=== PATIENT | female | born 1990 | race Caucasian/White ===

== ENCOUNTER 2024-12-27 08:20 | Outpatient (REF) | payer OTHER, SELFPAY ==
--- NOTE | 2024-12-27 08:25 | EMG_ITS ---
Chief complaint: Left arm feels heavy with lifting or overhead activities. There is some numbness in the forearm down to 3rd-5th digits. There is some pain on left neck/axillary area. Reason for referral: Evaluate for thoracic outlet syndrome Referred by: Nate TAYLOR Procedure done: Left upper extremity NCS/EMG Precautions and/or limitations: None The limb temperature was monitored continuously and remained between 32-36 degrees C during the performance of the NCS. Nerve Conduction Studies Anti Sensory Summary Table ?Stim Site NR Onset (ms) Norm Onset (ms) Peak (ms) Norm Peak (ms) O-P Amp (?V) Norm O-P Amp Site1 Site2 Delta-0 (ms) Dist (cm) Malik (m/s) Norm Malik (m/s) Left Lat Ante Brach Cutan Anti Sensory (Lat Forearm) Lat Biceps ? 2.5 2.7 9.4 Lat Biceps Lat Forearm 2.5 0.0 Left Med Ante Brach Cutan Anti Sensory (Med Forearm) Elbow ? 2.1 2.5 15.7 Elbow Med Forearm 2.1 0.0 Left Median Anti Sensory (2nd Digit) Wrist ? 2.3 3.1 <3.6 59.5 >10 Wrist 2nd Digit 2.3 14.0 61 Left Radial Anti Sensory (Thumb) Forearm ? 1.6 2.2 <3.1 36.0 Forearm Thumb 1.6 0.0 Left Ulnar Anti Sensory (5th Digit) Wrist ? 2.2 3.1 <3.7 60.4 >15.0 Wrist 5th Digit 2.2 14.0 64 Motor Summary Table ?Stim Site NR Onset (ms) Norm Onset (ms) O-P Amp (mV) Norm O-P Amp iAmp (mV) Amp (1st) (%) Site1 Site2 Delta-0 (ms) Dist (cm) Malik (m/s) Norm Malik (m/s) Left Median Motor (Abd Poll Brev) Wrist ? 2.7 <3.9 6.9 >4.5 7.9 100.0 Elbow Wrist 3.6 21.0 58 >45 Elbow ? 6.3 6.6 7.9 95.7 Left Ulnar Motor (Abd Dig Minimi) Wrist ? 2.6 <3.0 9.0 >5 10.5 100.0 B Elbow Wrist 2.8 17.5 62 >45 B Elbow ? 5.4 8.3 10.3 92.2 A Elbow B Elbow 1.6 10.0 63 >45 A Elbow ? 7.0 8.3 10.3 92.2 EMG ?Side Muscle Nerve Root Ins Act Fibs Psw Amp Dur Poly Recrt Int Pat Comment Left 1stDorInt Ulnar C8-T1 Nml Nml Nml Nml Nml 0 Nml Complete Left FlexCarRad Median C6-7 Nml Nml Nml Nml Nml 0 Nml Complete Left FlexCarpiUln Ulnar C8,T1 Nml Nml Nml Nml Nml 0 Nml Complete Left Biceps Musculocut C5-6 Nml Nml Nml Nml Nml 0 Nml Complete Left Triceps Radial C6-7-8 Nml Nml Nml Nml Nml 0 Nml Complete Left Deltoid Axillary C5-6 Nml Nml Nml Nml Nml 0 Nml Complete FINDINGS: All motor and sensory nerves tested showed normal latencies, amplitudes and conduction velocities. Concentric needle EMG was performed in selected muscles of the left upper extremity and cervical paraspinals. Study did not reveal signs of electric abnormalities as shown in the table above. IMPRESSION: 1. This is a normal study. 2. There is no electrodiagnostic evidence for median neuropathy, ulnar neuropathy, brachial plexopathy/thoracic outlet, or cervical radiculopathy. Thank you for your kind referral. Patricia Hathaway MD, TACOS Board Certified, [place] Board [employer] Physical Medicine and Rehabilitation (ABPMR) Board Certified, [place] Board of Electrodiagnostic Medicine (ABEM) CODIN [id number] MTDD
--- OUTSIDE RECORDS SUMMARY | 2024-12-27 08:26 | XMS_ITS ---
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 She was seen onMarch 16, 2023, at which time The following treatment regimen was given: Continue the following treatment(s): :Tretinoin 0.025% PM (refilled today). Discontinue the following treatment(s): :S/p Spir onolactone 50mg daily. Recommend the following Bjad-Yrj-Lameblk treatment(s): :CeraVe hydrating cleanserCeraVe facial moisturizer. Plan: :Controlled and improved. Since then, the patient states the acne vulgaris is stable.The patient presents for further evaluation and management.The patient followed the treatment plan as directed.Interval History: Patient reports flares during her cycle but thatacne is stable overall. Is currently using a molecular hydrogen machine (uses daily if possible) inaddition to tretinoin daily (requires a refill). Medications Medication Generic Name RxNorm Strength Strength Unit Route Dose Dose Form Frequency Date Started Date Ended Status Indication Sig Benzaclin Pump clindamy lilian-stephanie oyl peroxide 013867 1-5 % Topica l gel with pump 07/17/19 21 suspend ed Appl y once jovanna y in the morn ing to enti re face . ciclopirox ciclopir ox 281923 0.77 % Topica l cream 10/02/19 20 suspend ed Appl y am and pm on and unde r toen ails and on feet ciclopirox ciclopir ox 225247 0.77 % Topica l suspe nsion 07/17/19 21 suspend ed Appl y toe toen ails and nail fold jovanna y for 6 days , on 7th day kai ve with nail jaret sh kai zoila and star t over for tota l of 9 -12 oskar hs. ciclopirox ciclopir ox 222941 8 % Topica l solut ion 11/20/19 21 suspend ed Appl y on and arou nd nail s jovanna y, on 7th day kai ve with nail jaret sh kai zoila and re star t. Do this for 9-12 oskar hs. mupirocin mupiroci n 837738 2 % Topica l ointm ent suspend ed tretinoin tretinoi n 741726 0.025 % Topica l cream QHS 07/17/19 21 suspend ed Appl y a pea size d amou nt at bedt leslie. Ever y othe r nigh t to ever y thir d nigh t if irri keegan ng. tretinoin tretinoi n 882143 0.025 % Topica l small amoun t cream QHS 03/16/20 23 active Appl y a pea size d amou nt at bedt leslie. Ever y othe r nigh t to ever y thir d nigh t if irri keegan ng. tretinoin tretinoi n 236925 0.05 % Topica l cream 12/26/19 25 active Appl y pea- size d amou nt over the face in PM. September alte rnat e it with 0.02 5 for 2-3 week s as tole rate d. Then star t appl santino it jovanna y. minocycline minocycl ine 19781218 100 mg Oral capsu le suspend ed spironolact one spironol actone 19810619 50 mg Oral table t 09/18/19 21 suspend ed Take 1 pill by mout h once jovanna y for 1 week , if tole rate d incr ease to 2 pill s (100 mg) once jovanna y. terbinafine HCl terbinaf ine HCl 035518 250 mg Oral table t 02/27/20 20 suspend ed 1 tab po jovanna y avoi d alco hol d/c dark urin e ligh t shannon l move ment s AMOXICILLIN RODRIGUEZ 250/5ML NULL 04/18 10 active Atovaquone- Proguanil HCl NULL 08/21/19 18 active Azithromyci n NULL 08/21/19 18 active Ciprofloxac in HCl NULL 08/21/19 18 active Clindamycin Phosphate NULL 18 suspend ed Ertaczo NULL 07/25/19 11 active FLUCONAZOLE TAB 150MG NULL 10 active Gianvi NULL 08/21/19 18 active Jublia NULL 07/18/19 16 active Loryna NULL 08/21/19 18 active MICROGESTIN TAB FE1.5 NULL 0 10 active Omeprazole NULL 09/13/19 16 active OMEPRAZOLE 20 MG CPDR NULL 07/17 16 active OMEPRAZOLE 20 MG CPDR NULL 07/17 16 active Ondansetron NULL 08/21/19 18 active Ondansetron HCl NULL 08/21/19 18 active OXYCODONE TAB 5MG NULL 05/15/20 10 active PENICILLN VK TAB 500MG NULL 05/15/20 10 active Protonix NULL 10/28/19 19 suspend ed SERTRALINE TAB 50MG NULL 0 10 active Sertraline HCl NULL 09/13/19 16 active SERTRALINE HCL 50 MG TABS NULL 07/18/19 16 active SERTRALINE HCL 50 MG TABS NULL 07/18/19 16 active Simvastatin NULL 09/13/19 16 active SIMVASTATIN 10 MG TABS NULL 07/17 16 active SIMVASTATIN 10 MG TABS NULL 07/17 16 active Sprintec 28 NULL 09/13/19 16 active SPRINTEC 28 .25-35 MG-MCG TABS NULL 08/03 16 active Tretinoin NULL 08/21/19 18 active Urea NULL 02/14/20 10 active ALEE NULL 10/28/19 19 suspend ed Problems Problem Code Type Status Date of Diagnosis Da te of Resolution Acne vulgaris (disorder) 05923094(SNO MED) Diagnosis active 12/25/2024 Acne vulgaris (disorder) 00027616(SNO MED) Diagnosis active 03/16/2023 Melanocytic nevus (disorder) 900847104(SN OMED) Diagnosis active 03/16/2023 Seborrheic keratosis (disorder) 308854254(SN OMED) Diagnosis active 03/16/2023 Disorder of pigmentation (disorder) 303155372(SN OMED) Diagnosis active 03/16/2023 Hemangioma of skin and subcutaneous tissue (disorder) 354169257(SN OMED) Diagnosis active 03/16/2023 History of skin and/or subcutaneous tissue disease (situation) 254197772175 105(SNOMED) Diagnosis active 03/16/2023 Acne (disorder) 16082315(SNO MED) Diagnosis active 06/26/2021 Melanocytic nevus of lower limb (disorder) 191009361(SN OMED) Diagnosis active 06/26/2021 Seborrheic keratosis (disorder) 955326853(SN OMED) Diagnosis active 06/26/2021 Disorder of pigmentation (disorder) 797859678(SN OMED) Diagnosis active 06/26/2021 Hemangioma of skin and subcutaneous tissue (disorder) 072765119(SN OMED) Diagnosis active 06/26/2021 History of skin and/or subcutaneous tissue disease (situation) 019785598734 105(SNOMED) Diagnosis active 06/26/2021 Acne (disorder) 91445548(SNO MED) Diagnosis active 11/19/2020 Disorder of pigmentation (disorder) 130482608(SN OMED) Diagnosis active 11/19/2020 Onychomycosis caused by dermatophyte (disorder) 680659473(SN OMED) Diagnosis active 11/19/2020 Acne (disorder) 06664677(SNO MED) Diagnosis active 09/17/2020 Recurrent aphthous stomatitis (disorder) 142491579(SN OMED) Diagnosis active 09/17/2020 Tinea unguium B35.1(ICD-10 ) Diagnosis active 07/16/2020 Acne vulgaris L70.0(ICD-10 ) Diagnosis active 07/16/2020 Tinea unguium B35.1(ICD-10 ) Diagnosis active 02/13/2020 Tinea unguium B35.1(ICD-10 ) Diagnosis active 10/02/2019 Benign neoplasm of skin of trunk (disorder) 85847433(SNO MED) Diagnosis active 07/18/2015 Acne (disorder) 17832109(SNO MED) Problem active Dysplastic nevus of skin (disorder) 003982953(SN OMED) Problem active History of skin disorder (situation) 878275686(SN OMED) Problem active Results No data Encounters Service provided at [address], [facility] [address], [place], [place] [id number]. Office phonenumber is [phone]. Office fax number is [phone]. Encounter Diagnosis Location Date / Time Type Acne Vulgaris (L70.0) [facility] 12/25/2024 11:30:00 [facility] [id number] Reason For Referral I saw Jeanna Lemons in the office on December 25, 2024.Below is a summary of our visit:Acne Vulgaris:inflammatory papules and cystic papules of the lateral cheeks as well as few comedonal papules of the forehead and chin.Plan: Treatment Regimen and Prescription.My impression and plan was the followin.Acne Vulgaris, Status: Inadequately ControlledTreatment Regimen: OTC Regimen - :CeraVe hydrating cleanserCeraVe facial moisturizer; Plan - :Acne with exacerbation; will increase tretinoin today for better control. Patient not interested in systemic treatments. Pt will call the clinic for any refills if needed. FU in 1 year to recheck.; Continue Regimen - :Tretinoin 0.025% PM (Refilled today);Discontinue Regimen - :S/p Spironolactone 50mg daily; Initiate Treatment - :Tretinoin 0.05 % topical cream- Apply pea-sized amount over the face in PM. May alternate with 0.025 for 2-3 weeks until tolerated daily.;.Prescription: tretinoin 0.025 % topical cream TP Frequency: QHS; tretinoin 0.05 % topical cream TP Procedures Procedure Date Documentation of past medical history (p rocedure) Documentation of past medical history (p rocedure) Documentation of past medical history (p rocedure) Documentation of past medical history (p rocedure) Documentation of past medical history (p rocedure) Documentation of past medical history (p rocedure) Documentation of past medical history (p rocedure) Tonsillectomy (procedure) Tonsillectomy (procedure) Review Of Systems Provider reviewed on Dec 25, 2024.A focused review of systems was performed including Integumentary.No Problems With Healing And No Problems With Scarring (hypertrophic Or Keloid). Assessment 1.Acne Vulgaris, Status: Inadequately ControlledTreatment Regimen: OTC Regimen - :CeraVe hydrating cleanserCeraVe facial moisturizer; Plan - :Acne with exacerbation; will increase tretinoin today forbetter control. Patient not interested in systemic treatments. Pt will call the clinic for any refills if needed. FU in 1 year to recheck.; Continue Regimen - :Tretinoin 0.025% PM (Refilled today); Discontinue Regimen - :S/p Spironolactone 50mg daily; Initiate Treatment - :Tretinoin 0.05 % topical cream- Apply pea-sized amount over the face in PM. May alternate with 0.025 for 2-3 weeks until tolerated daily.;.Prescription: tretinoin 0.025 % topical cream TP Frequency: QHS; tretinoin 0.05 % topical cream TP Plan of Care Future visit for 12/25/2024 - Follow up for: Skin Check - 15 minutes (as previously scheduled). Other Instructions: February 2026. Other Instructions: February 2026. Code Detail Instructions 508057 tretinoin 0.025 % topical cream Apply a thin layer of cream to acne on face at PM. 240800 tretinoin 0.05 % topical cream A pply pea-sized amount over the face in PM. May alternate it with 0.025 for 2-3 weeks as tolerated. Then start applying it daily. 828577 tretinoin 0.025 % topical cream Apply a pea sized amount at bedtime. Every other night to every third night if irritating. 589534 tretinoin 0.025 % topical cream Apply a pea sized amount at bedtime. Every other night to every third night if irritating. 681626 tretinoin 0.025 % topical cream Apply a pea sized amount at bedtime. Every other night to every third night if irritating. 200565 tretinoin 0.025 % topical cream Apply a pea sized amount at bedtime. Every other night to every third night if irritating. 317963 tretinoin 0.025 % topical cream Apply a pea sized amount at bedtime. Every other night to every third night if irritating. 782682 Benzaclin Pump 1 %-5 % topical g el Apply once daily in the morning to entire face. 664775 ciclopirox 8 % topical solution Apply on and around nails daily, on 7th day remove with nail yi remover and re start. Do this for 9-12 months. 751499 spironolactone 50 mg tablet Take 1 pill by mouth once daily for 1 week, if tolerated increase to 2 pills (100 mg) once daily. 512887 tretinoin 0.025 % topical cream Apply a pea sized amount at bedtime. Every other night to every third night if irritating. 970910 Benzaclin Pump 1 %-5 % topical g el Apply once daily in the morning to entire face. 504079 ciclopirox 0.77 % topical suspen georgie Apply toe toenails and nail fold daily for 6 days, on 7th day remove with nail yi remover and start over for total of 9 -12 months. 045239 terbinafine HCl 250 mg tablet Ta ke one pill daily 736475 terbinafine HCl 250 mg tablet 1 tab po daily avoid alcohol d/c dark urine light bowel movements 657695 terbinafine HCl 250 mg tablet 1 tab po daily avoid alcohol d/c dark urine light bowel movements 031097 ciclopirox 0.77 % topical cream Apply am and pm on and under toenails and on feet 053908 ciclopirox 0.77 % topical cream Apply am and pm on and under toenails and on feet Instructions * Begin the following treatment(s): :Tretinoin 0.05 % topical cream- Apply pea- sized amount over the face in PM. May alternate with 0.025 for 2-3 weeks until tolerated daily.Continue the following treatment(s): :Tretinoin 0.025% PM (Refilled today). Discontinue the following treatment(s): :S/p Spironolactone 50mg daily. Recommend the following Uotg-Edt-Mszzifp treatment(s): :CeraVe hydrating cleanserCeraVe facial moisturizer. Plan: :Acne with exacerbation; will increase tretinoin today for bettercontrol. Patient not interested in systemic treatments. Pt will call the clinic for any refills if needed. FU in 1 year to recheck. Social History Code Activity Start Date End Date [id number] (SNOMED) Never smoker Sex female Sexual orientation Unspecified Gender identity Unspecified Vital Signs No data
--- OUTSIDE RECORDS SUMMARY | 2024-12-27 08:27 | XMS_ITS | Clinical Summary ---
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 Name Role Phone Unavailable Primary Care Provider Unavailabl e Social History Tobacco Use Types Packs/Day Years Used Date Smoking Tobacco: Never Assessed Comments Unknown Sex and Gender Information Value Date Recorded Sex Assigned at Not on file Legal Sex Female 6:26 PM EDT Gender Identity Not on file Sexual Orientation Not on file Plan of Treatment Health Maintenance Due Date Last Done Comments MMR Vaccines (1 of 1 - Stand amandeep series) 1989 Varicella Vaccines (1 of 2 - 13+ 2-dose series) 2001 DTaP,Tdap,and Td Vaccines (1 - Tdap) 2006 Hepatitis B Vaccines (1 of 3 - 19+ 3-dose series) 07/24/2007 HPV Vaccines (1 - 3-dose SCD M series) 07/24/2015 COVID-19 Vaccine ( - 2023-2 5 season) 2024 Influenza Vaccines (#1) 2024 HIB Vaccines Aged Out No longer eligi ble based on patient's age to complete this topic Hepatitis A Vaccines Aged Out No long er eligible based on patient's age to complete this topic IPV Vaccines Aged Out No longer eligi ble based on patient's age to complete this topic Men B Vaccine Aged Out No longer elig ible based on patient's age to complete this topic Meningococcal Vaccine Aged Out No evans ronnie eligible based on patient's age to complete this topic Pneumococcal Vaccine Aged Out No long er eligible based on patient's age to complete this topic
--- OUTSIDE RECORDS SUMMARY | 2024-12-27 08:27 | XMS_ITS ---
Author Name [facility] Organization Unknown Care Team Organization Name Specialty Phone Email Start Date End Da te [facility] NULL Primary Care 09/21/2022 01/03/2024 [facility] NULL Primary Care 07/22/2022 01/03/2024 [facility] NULL Primary Care 03/24/2022 01/03/2024
--- OUTSIDE RECORDS SUMMARY | 2024-12-27 08:27 | XMS_ITS | Clinical Summary ---
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 acidophilus/Bifi d. animalis (DAILY PROBIOTIC ORAL) Take by mouth. Active DAILY MULTI-VITAMIN ORAL Take by mouth. Active Active Problems Problem Noted Date Diagnosed Date Neck pain, chronic 09/01/2024 Assessment & Plan (09/01/2024 1:06 PM EDT): Ms. Lemons describes neck pain with associated headaches, left pectoralis pain skipping the upper arm but involving the ulnar aspect of the forearm into the fourth and fifth digits of the left hand. I am going to order xrays of the cervical spine. I gave her a script for physical therapy including cervical traction. She takes ibuprofen for the pain. She is welcome to follow up if things do not improve. Liver cyst 08/12/2018 Overview (06/14/2024): 08/02- seen on CT abdomen, sono pending Microscopic hematuria 08/05/2018 Overview (06/14/2024): 08/02- RBC 5, CT abd/pelvis pending Cerebral aneurysm 10/06/2017 Overview (06/14/2024): 08/01. Neurology (Dr. Alberto). 10/01. CTA one year. Assessment & Plan (09/01/2024 1:03 PM EDT): Ms. Lemons has had exertional headaches. She has a history of an intracranial aneurysm but no risk factors for growth or rupture. She is neurologically intact. Her MRA of the brain from 08/11/24 was compared to a prior from 2017. There was no change in a stable 1 mm focal outpouching extending cranially from the left P1 segment. 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 I reviewed the films with Dr. Ash. We will get a repeat MRA in 3 years. Exertional headache 2017 Overview (06/14/2024): 08/01- MRA, ? Varian anomoly, referred to neurology,? Need for 6 month follow-up pending neuro input Esophageal erosions 01/01/2015 IBS (irritable bowel syndrome) 12/31/2014 Overview (06/14/2024): 08/02- refer to GI Vitamin D deficiency 05/26/2011 Hypercholesterolemia with hypertriglyceridemia 1 Overview (06/14/2024): 02/19/11. Lifestyle and diet modifications and recheck in 3 mo. Depression 05/29/2009 GERD (gastroesophageal reflux disease) 8 Overview (06/14/2024): Intoguadalupe ryansebennett Resolved Problems Problem Noted Date Diagnosed Date Resolved Date Abnormal EKG 03/04/2017 08/02/2024 Overview (06/14/2024): 01/31 Holter completed- NSR, occ sinus tach with exercise. Rare PACs, one atrial pair, and one 4 beat atrial run with occasional PVCs, asymptomatic, episodes of lightheadedness and palpitations showed NSR. 08/01- echo with low-normal EF 50-55%, trace mitral regurge with mild leaflet thickening, 11/01- f/u Dr. Tran- f/u echo in 1 year Condition not found 07/18/2013 08/03/19 Overview (06/14/2024): Abnormal Pap smear Abdominal pain 01/25/2008 08/02/2024 Overview (06/14/2024): 2006 Ped GI [facility]--Colonoscopy neg, EGD esophagitis--?IBS 09/22--GI ([facility]az[facility])--IBS EGE 12/29. Small erosion, GE junction Encounters Date Type Department Care Team Description 12/12/2024 5:30 PM EDT Treatment [address] [phone] Charisse Bourneher, PT Neck pain, chronic (Primary Dx) 11/29/2024 5:30 PM EDT Treatment [address] [phone] Timmyl Mayra, PT Neck pain, chronic (Primary Dx) 11/27/2024 5:30 PM EDT Treatment [address] [phone] Timmyl Mayra, PT Neck pain, chronic (Primary Dx) 11/22/2024 5:30 PM EDT Treatment [address] [phone] Timmyl Mayra, PT Neck pain, chronic (Primary Dx) 11/20/2024 5:30 PM EDT Treatment [address] [phone] Moskal Mayra, PT Neck pain, chronic (Primary Dx) 11/13/2024 6:00 PM EDT Treatment [address] [phone] Timmyl Mayra, PT Neck pain, chronic (Primary Dx) 11/09/2024 8:00 AM EDT Consult Orthopedic Surgery - [place] [address] 175 [facility] [address] [place] [phone] Angelic Penn MD Thoracic outlet syndrome of left thoracic outlet 11/07/2024 5:00 PM EDT Treatment [facility] [address] [phone] Mayra Bourne, PT Neck pain, chronic (Primary Dx) 11/03/2024 8:30 AM EDT Treatment [facility] [address] [phone] 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, 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 Neck pain, chronic (Primary Dx) 10/31/2024 6:00 PM EDT Treatment [facility] [address] [phone] Mayra Bourne, PT Neck pain, chronic (Primary Dx) 10/24/2024 5:30 PM EDT Treatment [facility] [address] [phone] 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, 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 Neck pain, chronic (Primary Dx) 10/17/2024 5:00 PM EDT Treatment [address] [phone] Mayra Bourne, PT Neck pain, chronic (Primary Dx) 10/06/2024 9:00 AM EDT Evaluation [facility] [address] [phone] Evangelina Duffy, PT Neck pain, chronic (Primary Dx) 10/06/2024 8:07 AM EDT - 10/06/2024 11:59 PM EDT Hospital Encounter [facility] Xray [address] [place] [phone] Neck pain, chronic Discharge Disposition: Home or Self Care 10/06/2024 Telephone Neurosurgery [facility] 175 [facility] [address] [place] [phone] Tomas Cortés PA 09/27/2024 9:30 AM EDT Office Visit Adult Medicine [address] [phone] Mustapha Torres MD Arm pain, medial, left (Primary Dx); Internal hemorrhoid from Last 3 Months Immunizations Name Administration Dates Next Due DTP 07/30/1993, 0,01/26/1989,11/25,1988 [id number] (Pentacel) 2mo to less than 5yo 01/24/1990 Hepatitis A Adult (Havrix; V aqta) 19yo and older 10/21/2017 Hepatitis A Pediatric (Havri x; Vaqta) 12mo to less than 19yo 01/06/2017 Hepatitis B Pediatric (Enger ix B; Recombivax HB) to less than 20 yo 12/30/2000,08/26/2000,02/18/2000 Influenza trivalent, with pr eservative (Fluzone; Afluria) 6mo and older 02/23/2012,02/19/2011,06/27/2010 MMR, measles mumps and rubel la Live (Priorix; M-M-R II) 12mo and older 07/30/1993,10/25/1989 Meningococcal MCV4P 08/06/2006 OPV 07/30/1993, 0,1988,09/28 Tdap Tetanus diptheria acell ular pertussis (Boostrix; Adacel) 7yo and older 01/06/2017,08/06/2006 Typhoid VICPS (Typhim Vi) 2y o and older 01/06/2017 Surgical History Surgery Date Site/Laterality Comments TONSILLECTOMY 2009 PROCEDURE: HISTORICAL TONSILLECTOMY; COMMENT: no complications WISDOM TOOTH EXTRACTION 2009 PROCEDURE: HISTORICAL WISDOM TEETH EXTRACTION; COMMENT: no complications ESOPHAGOGASTRODUODENOSCOPY 01/01/15 PROCEDURE: [place] ESOPHAGOGASTRODUODENOSCOPY TRANSORAL DIAGNOSTIC; COMMENT: small erosion at GE junction COLONOSCOPY 06/03/2007 PROCEDURE: HISTORICAL COLONOSCOPY; COMMENT: [facility] - normal ESOPHAGOGASTRODUODENOSCOPY 06/03/2007 PROCEDURE: [place] ESOPHAGOGASTRODUODENOSCOPY TRANSORAL DIAGNOSTIC; COMMENT: [facility] - normal Medical History Medical History Date Comments Hypercholesterolemia with hypertriglyceridemia 02/20/2011 DX:Hypercholesterolemia with hypertriglyceridemia Atypical chest pain DX:Atypical chest pain GERD (gastroesophageal reflu x disease) DX:GERD (gastroesophageal re flux disease) Erosive esophagitis DX:Erosive e sophagitis Atypical chest pain DX:Atypical chest pain Early satiety DX:Early satiety Retained food in stomach DX:Genna ined food in stomach History of esophagitis DX:Histor y of esophagitis Family History Medical History Relation Name Comments Breast cancer Aunt Other: breast cancer Aunt stage 4 at diagnosis; paternal aunt; bilateral at diagnosis Stroke Maternal Grandmother ? 70s- aneurysm Depression Mother and anxiety Thyroid disease Mother hypo Other: lung cancer Other 1 paternal great uncle Other: stomach cancer Other 2 patern al great grandmother- at age 65 Alcohol/Drug Paternal Grandfather ETOH Lung cancer Paternal Grandfather smoker; at age 52 Colon cancer Paternal Grandmother Stroke Paternal Grandmother Other: prostate cancer Uncle pater nal uncle, lymphoma Relation Name Status Comments Aunt Alive Brother 1 Alive Brother 2 Alive Father Alive Maternal Grandfather Maternal Grandmother hemorra gic stroke Mother Alive Other 1 Other 2 Paternal Grandfather lung ca Paternal Grandmother complic ations from ischemic stroke Uncle Alive Social History Tobacco Use Types Packs/Day Years Used Date Smoking Tobacco: Never Passive Smoke Exposure: Never Smokeless Tobacco: Never Tobacco Cessation:Counseling Given: Not Answered Alcohol Use Standard Drinks/Week Comments No 0 (1 standard drink = 0.6 oz pur e alcohol) Housing Instability Answer Date Recorde d Are you worried that in the next 2 months you may not have stable housing? No 07/29/2024 Food Access & Nutrition Answer Date Rec orded Do you have access to a vari ety of food including fruits and vegetables? Yes 07/29/2024 Access to Healthcare Answer Date Record ed Within the last 3 months, ho w many times did you visit the emergency department for your medical care? 0 07/29/2024 Health Literacy Answer Date Recorded How often do you need to hav e someone help you when you read instructions, pamphlets, or other written material from your doctor or pharmacy? Never 07/29/2024 Caregiver: How often do you need to have someone help you when you read instructions, pamphlets, or other written material from your doctor or pharmacy? Not on file 07/29/2024 Financial Risk Answer Date Recorded How hard is it for you to pa y for the very basics like food, housing, medical care, and air conditioning / heating? Not very hard 07/29/2024 Transportation Answer Date Recorded Has the lack of transportati on kept you from meetings, work, or from getting things needed for daily living? No Has the lack of transportati on kept you from medical appointments or from getting medications? No 07/29/2024 Social Isolation Answer Date Recorded How often do you feel lonely or isolated from th ose around you? Never 07/29/2024 Food Risk Answer Date Recorded Within the past 12 months we worried whether our food would run out before we got money to buy more. Never true 07/29/2024 Within the past 12 months th e food we bought just didn't last and we didn't have money to get more. Never true 07/29/2024 Dependent Care Answer Date Recorded Do you need help finding or paying for care for your loved ones. For example, children librarian or elderly care for an older adult? No 07/29/2024 Education Answer Date Recorded Do you think completing more education or training, like finishing a GED, going to college, or learning a trade, would be helpful for you? No 07/29/2024 Employment and Income Answer Date Recor ded During the last four weeks, have you been actively looking for work? No 07/29/2024 Living Situation Answer Date Recorded What is your living situation? 0 07/29/2024 Comments Unknown Sex and Gender Information Value Date Recorded Sex Assigned at Not on file Legal Sex Female 2:10 AM EST Gender Identity Not on file Sexual Orientation Not on file Obstetrics History Last Filed Vital Signs Vital Sign Reading Time Taken Comments Blood Pressure 90/50 09/27/2024 9:29 AM EDT Pulse 62 09/27/2024 9:29 AM EDT Temperature 36.1 C (97 F) 09/27/2024 9:29 AM EDT Respiratory Rate - - Oxygen Saturation - - Inhaled Oxygen Concentration - - Weight 49 kg (108 lb) 11/09/2024 8:10 AM EDT Height 160 cm (5' 2.99 ) 11/09/2024 8:10 AM EDT Body Mass Index 19.14 11/09/2024 8:10 AM EDT Plan of Treatment Upcoming Encounters Date Type Department Care Team (Late st Contact Info) Description 02/15/2025 8:30 AM EDT Office Visit Orthopedic Surgery - [place] [address] [facility] [address] [place] [phone] Angelic Penn MD 175 [facility] [address] [place] [address] Health Maintenance Due Date Last Done Comments Pneumococcal Vaccine: Pediatrics (0 to 5 Years) and At-Risk Patients (6 to 49 Years) (1 of 2 - PCV) 07/24/2007 HIV Screening 05/06/2021 COVID-19 Vaccine ( season) 2024 02/10/2021, 05/27/2020, 05/06/2020 Influenza Vaccine (#1) 2025 2, 02/19/2011, 06/27/2010 Social Influencers of Health Screening 07/29/2025 07/29/2024 DTaP,Tdap,and Td Vaccines (8 - Td or Tdap) 01/06/2027 01/06/2017, 08/06/2006, 07/30/1993, Additional history exists Cervical Cancer Screening: Pap Smear 05/29/2027 05/29/2024, 06/06/2020 Cholesterol Screening (Lipid Panel) 08/02/2029 08/02/2024, 10/21/2017 HIB Vaccines Completed 01/24/1990 IPV Vaccines Completed 07/30/1993, 03/17, 01/24/1990, Additional history exists MMR Vaccines Completed 07/30/1993, 10/25/1989 Hepatitis B Vaccines Completed 12/30/2000, 08/26/2000, 02/18/2000 Meningococcal ACWY Vaccine Completed 08/06/2006 Hepatitis C Screening Completed 08/26/2011 Hepatitis A Vaccines Aged Out 10/21/2017, 01/07/20 17 No longer eligible based on patient's age to complete this topic Depression Screening Completed 07/29/2024 HPV Vaccines Aged Out No longer eligi ble based on patient's age to complete this topic Meningococcal B Vaccine Aged Out No l onger eligible based on patient's age to complete this topic RSV Immunization Patients Under 20 months Aged Out No longer eligible based on patient's age to complete this topic Varicella Vaccines Aged Out No longer eligible based on patient's age to complete this topic Procedures Procedure Name Priority Date/Time Associated Diagnosis Comments XR SHOULDER 2+ VIEWS LEFT Routine 11/09/2024 8:13 AM EDT Arm pain, medial, left XR CERVICAL SPINE 4-5 VIEWS Routine 10/06/2024 8:18 AM EDT Neck pain, chronic LIPID PANEL WITH REFLEX TO DIRECT LDL Routine 08/02/2024 9:53 AM EDT Other chest pain HM PAP SMEAR Routine 06/06/2020 HEPATITIS C SCREENING Routine 08/26/2011 from Last 3 Months or Most Recently Relevant to Health Maintenance Results * XR Shoulder 2+ Views Left (11/09/2024 8:13 AM EDT) Anatomical Region Laterality Modality Upper Extremities, Shoulder Left Comp uted Radiography 11/09/2024 10:2 6 AM EDT Impressions 11/09/2024 10:29 AM EDT No clear source of shoulder pain identified. POS - [id number] -------- FINAL REPORT -------- Dictated By: Cristin Acosta Dictated Date: 11/09/2024 10:26 ET Assigned Physician: Cristin Acosta Reviewed and Electronically Signed By: Cristin Acosta Signed Date: 11/09/2024 10:29 ET Workstation ID: [id number] Transcribed By: Self Edit Transcribed Date: 11/09/2024 10:26 ET Narrative 11/09/2024 10:29 AM EDT EXAM: Left shoulder x-ray HISTORY: Left shoulder pain. COMPARISON: None FINDINGS: 4 views performed. No appreciable degenerative changes at the acromioclavicular and glenohumeral joints. No evidence of an acute fracture or dislocation. No destructive bone lesion. No soft tissue calcifications. Procedure Note Cristin Acosta MD - 11/09/2024 EXAM: Left shoulder x-ray HISTORY: Left shoulder pain. COMPARISON: None FINDINGS: 4 views performed. No appreciable degenerative changes at the acromioclavicular andglenohumeral joints. No evidence of an acute fracture or dislocation. Nodestructive bone lesion. No soft tissue calcifications. IMPRESSION: No clear source of shoulder pain identified. POS - [id number] -------- FINAL REPORT -------- Dictated By: Cristin Acosta Dictated Date: 11/09/2024 10:26 ET Assigned Physician: Cristin Acosta Reviewed and Electronically Signed By: Cristin Acosta Signed Date: 11/09/2024 10:29 ET Workstation ID: [id number] Transcribed By: Self Edit Transcribed Date: 11/09/2024 10:26 ET Angelic Penn MD IMG XR PROCEDURES Final Result * XR Cervical Spine 4-5 Views (10/06/2024 8:18 AM EDT) Anatomical Region Laterality Modality Spine, C-spine Radiographic Felicitas ging 10/06/2024 8:57 AM EDT Impressions 10/06/2024 8:58 AM EDT FINDINGS/IMPRESSION: Normal cervical lordosis. No fracture or prevertebral swelling. Disc space heights and facet joints are preserved. Normal alignment with flexion and extension. Lung apices are clear. -------- FINAL REPORT -------- Dictated By: SETH FAIRCHILD Dictated Date: 10/06/2024 08:57 ET Assigned Physician: SETH FAIRCHILD Reviewed and Electronically Signed By: SETH FAIRCHILD Signed Date: 10/06/2024 08:58 ET Workstation ID: [id number] Transcribed By: Self Edit Transcribed Date: 10/06/2024 08:57 ET Narrative 10/06/2024 8:58 AM EDT XR CERVICAL SPINE 4-5 VIEWS INDICATION: Pain TECHNIQUE: XR CERVICAL SPINE 4-5 VIEWS COMPARISON: No priors available. Procedure Note Seth Fairchild MD - 10/06/2024 XR CERVICAL SPINE 4-5 VIEWS INDICATION: Pain TECHNIQUE: XR CERVICAL SPINE 4-5 VIEWS COMPARISON: No priors available. IMPRESSION: FINDINGS/IMPRESSION: Normal cervical lordosis. No fracture orprevertebral swelling. Disc space heights and facet joints are preserved.Normal alignment with flexion and extension. Lung apices are clear. -------- FINAL REPORT -------- Dictated By: SETH FAIRCHILD Dictated Date: 10/06/2024 08:57 ET Assigned Physician: SETH FAIRCHILD Reviewed and Electronically Signed By: SETH FAIRCHILD Signed Date: 10/06/2024 08:58 ET Workstation ID: [id number] Transcribed By: Self Edit Transcribed Date: 10/06/2024 08:57 ET Tomas TAYLOR IMG XR PROCEDURES Final Resul t * Lipid panel with reflex to direct LDL (08/02/2024 9:53 AM EDT) Cholesterol 161 0 - 200 mg/dL LAB CHE[facility]STR[facility] Triglycerides 93 0 - 150 mg/dL LAB CHEMISTRY METHOD 08/02/2024 12:33 PM [facility] HDL 44 >=40 mg/dL LAB CHEMISTRY METHOD 08/02/2024 12:33 PM [facility] LDL Calculated 98 0 - 100 mg/dL LAB CHEMISTRY METHOD 08/02/2024 12:33 PM [facility] VLDL Cholesterol [place] 18.6 mg/dL LAB CHEMISTRY METHOD 08/02/2024 12:33 PM [facility] Non HDL Chol. (LDL+VLDL) 117 <145 mg/dL LAB CHEMISTRY METHOD 08/02/2024 12:33 PM [facility] Chol/HDL Ratio 3.7 0.0 - 4.4 LAB CHEMISTRY METHOD 08/02/2024 12:33 PM [facility] Blood Venous blood specimen / Unknown Venipuncture / Unknown 08/02/2024 9:53 AM EDT 08/02/2024 9:53 AM EDT Mustapha Torres MD LAB BLOOD ORDERABLES Fin al Result [facility] [address] [place] [address], * Pap Smear (06/06/2020) Pap smear no interpretation , abstracted Historical Provider HEALTH MAINTENANCE Final Result * Hepatitis C Screening (08/26/2011) Hepatitis C Screening abstracted Historical Provider HEALTH MAINTENANCE Final Result from Last 3 Months or Most Recently Relevant to Health Maintenance Insurance [facility] [address] [place] [address] Care Teams Pit Worker Power Shovel Relationship Specialty Start Date End Date Bennett Rodriguez MD [address] [place] [address] PCP - General 01/06/08
== END 2024-12-27 08:21 | disposition home or self-care (01) ==
LOC: HO.NEURO 08:20
PROVIDERS: PCP Pediatrics
DX: R20.0 Anesthesia of skin (principal); R20.2 Paresthesia of skin
CPT/HCPCS: 95886; 95910

== ENCOUNTER → 2024-12-27 08:25 | Outpatient (BNV) | payer OTHER, SELFPAY | PROVIDERS: PCP Pediatrics; Visit Provider Physical Medicine & Rehabilitation | DX: R20.0 Anesthesia of skin (principal); R20.2 Paresthesia of skin | CPT/HCPCS: 95886; 95910 ==

== ENCOUNTER 2025-03-09 14:43 | Outpatient (AMB) | payer OTHER, SELFPAY ==
--- NOTE | 2025-03-09 14:48 | A.OFFVIS_ITS ---
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 Patient describes pain as a heavy sensation making it difficult to do things like driving. Patient states resting her arm against her chest relieves the pain. She also reports occasional numbers and tingling of the left 3rd, 4th, and 5th digits. She denies any recent injuries or surgeries to the left upper extremity. 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 IMPRESSION 12/27/24: 1. This is a normal study. 2. There is no electrodiagnostic evidence for median neuropathy, ulnar neuropathy, brachial plexopathy/thoracic outlet, or cervical radiculopathy. 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 Patient describes pain as a heavy sensation making it difficult to do things like driving. Patient states resting her arm against her chest relieves the pain. She also reports occasional numbers and tingling of the left 3rd, 4th, and 5th digits. She denies any recent injuries or surgeries to the left upper extremity. 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 Patient reports that she does not that the EMG was negative for thoracic outlet syndrome or any other neurological deficits. Patient has done several weeks of physical therapy in the past, with no effect. IMPRESSION 12/27/24: 1. This is a normal study. 2. There is no electrodiagnostic evidence for median neuropathy, ulnar neuropathy, brachial plexopathy/thoracic outlet, or cervical radiculopathy. 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 Review of Systems Const All systems reviewed & are unremarkable except as noted in HPI and below Physical Exam Vital Signs: BMI result Body Mass Index 20.1 Extrem Other: Patient's left shoulder normal to inspection No erythema, ecchymosis, edema noted No lacerations, abrasions, open areas No evidence of infection Patient reports mild tenderness to palpation of the anterior aspect of the left shoulder near the axilla No tenderness to palpation anywhere else in the left shoulder Patient is able to forward flex to 90 degrees and externally rotate to 80 degrees without difficulty 4-5 empty can on the left, 5/5 in the right 5/5 belly press bilaterally Positive Thomas in the left, negative on the right Distal sensation intact Capillary refill brisk Assessment & Plan Assessment & Plan (1) Internal derangement of left shoulder: Code(s): M24.812 - Other specific joint derangements of left shoulder, not elsewhere classified Category: Medical Plan 1. Internal derangement of the left shoulder Patient is educated about this condition Patient is educated about the typical treatment course At this time, I do feel that there is likely some soft tissue derangement of the left shoulder, an MRI is likely the best way to evaluate this MRI ordered at this time Patient will follow-up after MRI for results review and discussion of further t reatment options if indicated Patient understands this is amenable to this plan Orders: Orders MR shoulder LT wo con Today S46.009A - Unspecified injury of muscle(s) and tendon(s) of the rotator cuff of unspecified shoulder, initial encounter Coding Level of Care Code New Pt Level 3 (53518) Diagnoses Internal derangement of left shoulder M24.812
[2025-03-09 14:49] VITALS: BMI 20.1
--- OUTSIDE RECORDS SUMMARY | 2025-03-09 16:29 | XMS_ITS | Clinical Summary ---
Author Organization [facility] Address [address] [place] [address] Care Team Providers Care Accounts Officer Name Role Phone Bennett Rodriguez MD Primary Care Provider [phone] Allergies No known active allergies Medications L. acidophilus/Bifi d. animalis (DAILY PROBIOTIC ORAL) Take by mouth. Active DAILY MULTI-VITAMIN ORAL Take by mouth. Active Active Problems Problem Noted Date Diagnosed Date Neck pain, chronic 09/01/2024 Assessment & Plan (09/01/2024 1:06 PM EDT): Ms. Johnston describes neck pain with associated headaches, left [...] & Plan (09/01/2024 1:03 PM EDT): Ms. Johnston has had exertional headaches. She has a [...] 1 year Condition not found 07/18/2013 08/03/19 25 Overview (06/14/2024): Abnormal Pap smear Abdominal pain 01/25/2008 08/02/2024 Overview (06/14/2024): 2006 Ped GI [facility]--Colonoscopy neg, EGD esophagitis--?IBS 09/22--GI (Shauna Velazquez)--IBS EGE 12/29. Small erosion, GE junction Encounters Date Type Department Care Team Description 01/26/2025 Telephone Orthopedic Surgery - [place] [address] [facility] [address] [place] [address] Daphney Penny [place] 12/12/2024 5:30 PM EDT Treatment [facility] Outpatient Rehabilitation - [place] [address] [facility] [address] [place] [address] Mayra Bourne, ALVA Neck pain, chronic (Primary Dx) from Last 3 Months Immunizations Immunization Administration Dates Next Due DTP 07/30/1993, 0,01/26/1989,11/25,1988 [id number] (Pentacel) 2mo to less than 5yo 01/24/1990 [...] EXTRACTION; COMMENT: no complications ESOPHAGOGASTRODUODENOSCOPY 01/01/15 PROCEDURE: [place] ESOPHAGOGASTRODUODENOSCOPY TRANSORAL DIAGNOSTIC; COMMENT: small erosion at GE junction COLONOSCOPY 06/03/2007 PROCEDURE: HISTORICAL COLONOSCOPY; COMMENT: [facility] - normal ESOPHAGOGASTRODUODENOSCOPY 06/03/2007 PROCEDURE: [place] ESOPHAGOGASTRODUODENOSCOPY TRANSORAL DIAGNOSTIC; COMMENT: [facility] - normal Medical History Medical History [...] care for your loved ones. For example, early childhood coordinator or elderly care for an older adult? [...] Date Recorded What is your living situation? Unrecognized valu e 07/29/2024 Comments Unknown Sex and Gender Information [...] Care Team (Late st Contact Info) Description 05/04/2025 9:30 AM EST Consult Vascular Surgery - [place] [address] [place] [address] Mansoor Bran MD [address] [place] [phone] 06/11/2025 1:00 PM EST Appointment [facility] Ultrasound [address] [place] [phone] Health Maintenance Due Date Last Done Comments HPV Vaccines (1 - 3-dose SCDM series) 07/24/2015 HIV Screening 05/06/2021 COVID-19 Vaccine ( season) 2025 02/10/2021, 05/27/2020, 05/06/2020 Influenza Vaccine (#1) 2025 2, 02/19/2011, 06/27/2010 Social Influencers of Health Screening 07/29/2025 07/29/2024 DTaP,Tdap,and Td Vaccines (8 - Td or Tdap) 01/06/2027 01/06/2017, 08/06/2006, 07/30/1993, Additional history exists Cervical Cancer Screening: Pap Smear 05/29/2027 05/29/2024, 06/06/2020 Cholesterol Screening (Lipid Panel) 08/02/2029 08/02/2024, 10/21/2017 RSV Immunization Adult Patients (1 - 1-dose 75+ series) 07/24/2063 HIB Vaccines Completed 01/24/1990 IPV Vaccines Completed 07/30/1993, 03/17, 01/24/1990, Additional history exists MMR Vaccines Completed 07/30/1993, 10/25/1989 Hepatitis B Vaccines Completed 12/30/2000, 08/26/2000, 02/18/2000 Meningococcal ACWY Vaccine Completed 08/06/2006 Hepatitis C Screening Completed 08/26/2011 Hepatitis A Vaccines Aged Out 10/21/2017, 01/07/20 17 No longer eligible based on patient's age to complete this topic Depression Screening Completed 07/29/2024 Meningococcal B Vaccine Aged Out No l onger eligible based on patient's age to complete this topic Pneumococcal Vaccine: Pediatrics (0 to 5 Years) and At-Risk Patients (6 to 49 Years) Aged Out No longer eligible based on patient's age to complete this topic RSV Immunization Patients Under 20 months Aged Out No longer eligible based on patient's age to complete this topic Varicella Vaccines Aged Out No longer eligible based on patient's age to complete this topic Procedures Procedure Name Priority Date/Time Associated Diagnosis Comments LIPID PANEL WITH REFLEX TO DIRECT LDL Routine 08/02/2024 9:53 AM EDT Other chest pain PAP SMEAR Routine 06/06/2020 HEPATITIS C SCREENING Routine 08/26/2011 from Last 3 Months or Most Recently Relevant to Health Maintenance Results * Lipid panel with reflex to direct LDL (08/02/2024 9:53 AM EDT) Cholesterol 161 0 - 200 mg/dL LAB CHEMISTRY METHOD 08/02/2024 12:33 PM EDT [facility] Triglycerides 93 0 - 150 mg/dL LAB CHEMISTRY METHOD 08/02/2024 12:33 PM EDT [facility] HDL 44 >=40 mg/dL LAB CHEMISTRY METHOD 08/02/2024 12:33 PM EDT [facility] LDL Calculated 98 0 - 100 mg/dL LAB CHEMISTRY METHOD 08/02/2024 12:33 PM EDT [facility] VLDL Cholesterol [place] 18.6 mg/dL LAB CHEMISTRY METHOD 08/02/2024 12:33 PM EDT [facility] Non HDL Chol. (LDL+VLDL) 117 <145 mg/dL LAB CHEMISTRY METHOD 08/02/2024 12:33 PM EDT [facility] Chol/HDL Ratio 3.7 0.0 - 4.4 LAB CHEMISTRY METHOD 08/02/2024 12:33 PM EDT [facility] Blood Venous blood specimen / Unknown Venipuncture / Unknown 08/02/2024 9:53 AM EDT 08/02/2024 9:53 AM EDT Mustapha Torres MD LAB BLOOD ORDERABLES Fin al Result [facility] [address] [place] [address], * Pap Smear (06/06/2020) Pathologist [facility] Pap smear no interpretation , abstracted Palmer Shore MD HEALTH MAINTENANCE Final Result * Hepatitis C Screening (08/26/2011) [facility] Hepatitis C Screening abstracted Palmer Shore MD HEALTH MAINTENANCE Final Result from Last 3 Months or Most Recently Relevant to Health Maintenance Insurance [facility] Care Teams Accounts Officer Relationship Specialty Start Date End Date Bennett Rodriguez MD [address] [place] [address] PCP - General 01/06/08
--- OUTSIDE RECORDS SUMMARY | 2025-03-09 16:29 | XMS_ITS | Clinical Summary ---
Author Organization [facility] Address [address] [place] [address] Phone Care Team Providers Care Paperhanger Name Role Phone Unavailable Primary Care Provider [...] (1 - 3-dose SCD M series) 07/24/2015 Influenza Vaccines (#1) 2024 COVID-19 Vaccine ( - 2024-2 6 season) 2025 HIB Vaccines Aged Out No longer eligi [...]
--- OUTSIDE RECORDS SUMMARY | 2025-03-09 16:29 | XMS_ITS | Encounter Summary ---
Author Organization [facility] Address [address] [place] [phone] Phone Care Team Providers Care Assembler Flexible Leads Name Role Phone Unavailable Primary Care Provider Unavailabl e Encounter Details Date Type Department Care Team (Late st Contact Info) Description 10/03/2017 Con[facility]counter [facility] [address] [address] Social History Tobacco Use Types Packs/Day Years Used Date Smoking Tobacco: Never Assessed Comments Unknown Sex and Gender Information Value Date Recorded Sex Assigned at Not on file Legal Sex Female 6:26 PM EDT Gender Identity Not on file Sexual Orientation Not on file documented as of this encounter Plan of Treatment Not on file documented as of this encounter Visit Diagnoses Not on filedocumented in this encounter
== END 2025-03-09 15:42 | disposition home or self-care (01) ==
LOC: HO.HOS 14:44
PROVIDERS: PCP Pediatrics
DX: M24.812 Other specific joint derangements of left shoulder, not elsewhere classified (principal)
CPT/HCPCS: 99203

== ENCOUNTER 2025-04-10 07:55 | Outpatient (REF) | payer OTHER, SELFPAY ==
--- NOTE | ~2025-04-10 | MR_ITS ---
EXAMINATION: MR SHOULDER WITHOUT CONTRAST, LEFT CLINICAL INFORMATION: Question impingement syndrome. Pain. COMPARISON: None available. TECHNIQUE: MRI of the shoulder without contrast was performed on a high-field scanner. FINDINGS: ROTATOR CUFF: Supraspinatus: Mild tendinosis. Infraspinatus: Intact Teres minor: Intact Subscapularis: Mild-moderate tendinosis No muscle atrophy or fatty infiltration. BICEPS: Intact CORACOACROMIAL ARCH: The undersurface of the acromion is curved with no subacromial spur. The acromioclavicular joint is normal. LABRUM/CAPSULE: T2 signal extending to the base of the posterior- inferior labrum, suspicious for a tear. Remainder the labrum appears intact. Intact inferior capsule GLENOHUMERAL JOINT/MARROW: No fracture. No aggressive marrow replacing lesion. No significant glenohumeral joint effusion. MR/MR shoulder LT wo con IMPRESSION: * Mild supraspinatus tendinosis. Mild-moderate subscapularis tendinosis. * Posterior-inferior labral findings suspicious for a tear. Electronically signed by: Rolando Oliva MD 04/11/2025 08:06 AM LEXA
--- OUTSIDE RECORDS SUMMARY | 2025-04-10 08:07 | XMS_ITS | Encounter Summary ---
Author Organization [facility] Address [address] [place] [phone] Phone Care Team Providers Care Wire Products Inspector Name Role Phone Unavailable Primary Care Provider Unavailabl e Encounter Details Date Type Department Care Team (Late st Contact Info) Description 10/03/2017 Conversion [facility]counter [facility] [address] [address] Social History Tobacco Use Types Packs/Day Years [...]
--- OUTSIDE RECORDS SUMMARY | 2025-04-10 08:07 | XMS_ITS | Clinical Summary ---
Author Organization [facility] Address [address] [place] [address] Phone Care Team Providers Care Fancy Sewer Name Role Phone Unavailable Primary Care Provider [...]
== END 2025-04-10 07:56 | disposition home or self-care (01) ==
LOC: HO.MRI 07:55
PROVIDERS: PCP Pediatrics
DX: S46.002A Unspecified injury of muscle(s) and tendon(s) of the rotator cuff of left shoulder, initial encounter (principal)
CPT/HCPCS: 73221

== ENCOUNTER → 2025-04-10 07:55 | Outpatient (BNV) | payer OTHER, SELFPAY | PROVIDERS: PCP Pediatrics; Visit Provider Radiology Diagnostic Ultrasound | DX: M75.32 Calcific tendinitis of left shoulder (principal) | CPT/HCPCS: 73221 ==

== ENCOUNTER 2025-05-02 08:43 | Outpatient (AMB) | payer OTHER, SELFPAY ==
--- NOTE | 2025-05-02 08:46 | A.OFFVIS_ITS ---
Vital Signs 05/02/25 08:48 Height 5 ft 2 in Weight 110 lb BMI 20.1 Intake Visit Reasons: OV-Left Shoulder MRI review Intake Note: Jeanna is a 34 year old right hand dominant female who presents today for a MRI Review & Follow Up of her Left Shoulder Internal Derangement. At today's visit she states that the left shoulder pain is still the same, no changes to report at this time. per AA, ok to keep w/o NE in office IMPRESSION 04/10/25: * Mild supraspinatus tendinosis. Mild-moderate subscapularis tendinosis. * Posterior-inferior labral findings suspicious for a tear. Allergies No Known Allergies Allergy (Verified 03/09/25 14:49) HPI HPI OV-Left Shoulder MRI review: Details: Jeanna is a 34 year old right hand dominant female who presents today for a MRI Review & Follow Up of her Left Shoulder Internal Derangement. At today's visit she states that the left shoulder pain is still the same, no changes to report at this time. Patient does report that the feelings of heaviness in the left arm have gotten slightly better since previous evaluation. Denies any numbness or tingling in the left hand. IMPRESSION 04/10/25: * Mild supraspinatus tendinosis. Mild-moderate subscapularis tendinosis. * Posterior-inferior labral findings suspicious for a tear. 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 Review of Systems Const All systems reviewed & are unremarkable except as noted in HPI and below Physical Exam Vital Signs: BMI result Body Mass Index 20.1 Extrem Other: Patient's left shoulder normal to inspection No erythema, ecchymosis, edema noted No lacerations, abrasions, open areas No evidence of infection Patient reports mild tenderness to palpation of the anterior aspect of the left shoulder near the axilla No tenderness to palpation anywhere else in the left shoulder Patient is able to forward flex to 90 degrees and externally rotate to 80 degrees without difficulty 4+/5 empty can on the left, 5/5 in the right 5/5 belly press bilaterally 4+/5 lift-off on the left, 5/5 on the right Positive Thomas in the left, negative on the right Distal sensation intact Capillary refill brisk Results Reviewed Results Reviewed: IMPRESSION: * Mild supraspinatus tendinosis. Mild-moderate subscapularis tendinosis. * Posterior-inferior labral findings suspicious for a tear. Electronically signed by: Rolando Oliva MD Assessment & Plan Assessment & Plan (1) Subscapularis tendinitis of left shoulder: Code(s): M75.82 - Other shoulder lesions, left shoulder Category: Medical (2) Left supraspinatus tendinitis: Code(s): M75.92 - Shoulder lesion, unspecified, left shoulder Category: Medical (3) Tear of left glenoid labrum: Code(s): S43.432A - Superior glenoid labrum lesion of left shoulder, initial encounter Category: Medical Plan 1. Supraspinatus and subscapularis tendinitis of the left shoulder 2. Glenoid labrum tear of left shoulder No acute injury Patient is educated about this condition Patient is educated about the typical recovery course At this time, patient informs me that she has done some physical therapy for the shoulder, however this was primarily focused on dry needling and pectoralis minor syndrome I feel that dedicated PT for rotator cuff tendinitis and labral tear is the best way for the patient to move forward at this time Therefore PT is ordered for range of motion, strengthening, stabilization of the left shoulder As the patient has not had any injuries like a shoulder dislocation, I do not feel that surgical intervention is something we should jump to at this time Patient understands this and is amenable to this plan Follow-up as needed Orders: Orders PT Evaluation and Treatment Today M75.82 - Other shoulder lesions, left shoulder, M75.92 - Shoulder lesion, unspecified, left shoulder Coding Level of Care Code Est Pt Level 3 (00448) Diagnoses Subscapularis tendinitis of left shoulder M75.82 Left supraspinatus tendinitis M75.92 Tear of left glenoid labrum S43.432A
[2025-05-02 08:48] VITALS: BMI 20.1
--- OUTSIDE RECORDS SUMMARY | 2025-05-02 09:07 | XMS_ITS | Clinical Summary ---
Author Organization [facility] Address [address] [place] [address] Phone Care Team Providers Care Literary Writer Name Role Phone Unavailable Primary Care Provider [...]
--- OUTSIDE RECORDS SUMMARY | 2025-05-02 09:07 | XMS_ITS | Encounter Summary ---
Author Organization [facility] Address [address] [place] [address] Phone Care Team Providers Care Security Systems Administrator Name Role Phone Unavailable Primary Care Provider Unavailabl e Encounter Details Date Type Department Care Team (Late st Contact Info) Description 10/03/2017 Conversion [facility]counter [facility] [address] [address] Social History Tobacco Use Types Packs/Day Years [...]
--- OUTSIDE RECORDS SUMMARY | 2025-05-02 09:07 | XMS_ITS | Clinical Summary ---
Author Organization [facility] Address [address] [place] [address] Care Team Providers Care Batch Operator Name Role Phone Delia Rodriguez MD Primary Care Provider [phone] Allergies No known active allergies Medications L. [...] (gastroesophageal reflux disease) 8 Overview (06/14/2024): Intoguadalupe ryansedelia Resolved Problems Problem Noted Date Diagnosed Date [...] Velazquez)--IBS EGE 12/29. Small erosion, GE junction Immunizations Immunization Administration Dates Next Due DTP 07/30/1993, 0,01/26/1989,11/25,1988 [id number] (Pentacel) 2mo to less than 5yo 01/24/1990 [...] EXTRACTION; COMMENT: no complications ESOPHAGOGASTRODUODENOSCOPY 01/01/15 PROCEDURE: [place] ESOPHAGOGASTRODUODENOSCOPY TRANSORAL DIAGNOSTIC; COMMENT: small erosion at GE junction COLONOSCOPY 06/03/2007 PROCEDURE: HISTORICAL COLONOSCOPY; COMMENT: [facility] - normal ESOPHAGOGASTRODUODENOSCOPY 06/03/2007 PROCEDURE: [place] ESOPHAGOGASTRODUODENOSCOPY TRANSORAL DIAGNOSTIC; COMMENT: [facility] - normal Medical History Medical History [...] care for your loved ones. For example, child nutrition manager or elderly care for an older adult? [...] on file Sexual Orientation Not on file Last Filed Vital Signs Vital Sign Reading [...] 9:30 AM EST Consult Vascular Surgery - [place] [address] [place] [phone] Mansoor Bran MD [address] [place] [address] 06/11/2025 1:[address] [facility] Ul[facility]ound [address] [place] [phone] Health Maintenance Due Date Last Done Comments [...] LAB CHEMISTRY METHOD 08/02/2024 12:33 PM EDT [facility] Triglycerides 93 0 - 150 mg/dL LAB CHEMISTRY METHOD 08/02/2024 12:33 PM EDT [facility] HDL 44 >=40 mg/dL LAB CHEMISTRY METHOD 08/02/2024 12:33 PM EDT [facility] LDL Calculated 98 0 - 100 mg/dL LAB CHEMISTRY METHOD 08/02/2024 12:33 PM EDT [facility] VLDL Cholesterol [place] 18.6 mg/dL LAB CHEMISTRY METHOD 08/02/2024 12:33 PM EDT [facility] Non HDL Chol. (LDL+VLDL) 117 <145 mg/dL LAB CHEMISTRY METHOD 08/02/2024 12:33 PM EDT [facility] Chol/HDL Ratio 3.7 0.0 - 4.4 LAB CHEMISTRY METHOD 08/02/2024 12:33 PM EDT [facility] Blood Venous blood specimen / Unknown Venipuncture / Unknown 08/02/2024 9:53 AM EDT 08/02/2024 9:53 AM EDT Mustapha Torres MD LAB BLOOD ORDERABLES Fin al Result [facility] [address] [place] [address], * Pap Smear (06/06/2020) Pap smear no interpretation , abstracted Historical Provider HEALTH MAINTENANCE Final Result * Hepatitis C Screening (08/26/2011) Hepatitis C Screening abstracted Historical Provider HEALTH MAINTENANCE Final Result from Last 3 Months or Most Recently Relevant to Health Maintenance Insurance [facility] Care Teams Batch Operator Relationship Specialty Start Date End Date Delia Rodriguez MD [address] [place] [phone] PCP - General 01/06/08
== END 2025-05-02 09:41 | disposition home or self-care (01) ==
LOC: HO.HOS 08:44
PROVIDERS: PCP Pediatrics
DX: M75.82 Other shoulder lesions, left shoulder (principal); M75.92 Shoulder lesion, unspecified, left shoulder; S43.432A Superior glenoid labrum lesion of left shoulder, initial encounter
CPT/HCPCS: 99213